=== PATIENT | female | born 1995 | race Caucasian/White ===

== ENCOUNTER → 2020-03-21 | Outpatient (CLI) | payer BC ==
[2020-03-21 22:09] LABS: FSH 4.6 mIU/mL (.); PROLACTIN 20.7 ng/mL (4.8-23.3)
[2020-03-21 23:09] LABS: DHEA SO4 266.8 ug/dL (110.0-431.7); TESTOSTERONE TOTAL 67 ng/dL (8-48)
[2020-03-22 12:12] LABS: INSULIN LEVEL 41.9 uIU/mL (2.6-24.9)
== END ==
LOC: LAB 10:11
PROVIDERS: ATTEND Nurse Practitioner Women's Health
DX: N92.6 Irregular menstruation, unspecified (principal)
CPT/HCPCS: 36415; 82627; 83001; 83002; 83525; 84146; 84403